=== PATIENT | female | born 1970 | race Caucasian/White ===

== ENCOUNTER 2019-12-27 23:55 | Emergency (ER) | payer SELFPAY ==
[~2019-12-27] VITALS: Ht 154.9 cm; Wt 113.6 kg
[2019-12-28 00:40] VITALS: BP 159/87
--- NOTE | 2019-12-28 01:09 | PHYS DOC ---
Adult General Chief Complaint Chief Complaint: Influenza HPI HPI Patient is a 49 year old female who presents with complaining of cough and flu. Patient states she was diagnosed with flu 3 days ago when she was seen at urgent care and had chest x-ray and treated with Zithromax but her cough is not getting better and she wants something to stop her cough. Patient denies chest pain, shortness of breath and vomiting. Patient complaining of intermittent episodes of fever and myalgia. Review of Systems Review of Systems Constitutional: Reports fever and chills Eyes: Denies change in visual acuity, redness, or eye pain [] HENT: Reports nasal congestion and sore throat Respiratory: , Cardiovascular: No additional information not addressed in HPI [] GI: Denies abdominal pain, nausea, vomiting, reports diarrhea [] : Denies dysuria or hematuria [] Musculoskeletal: Denies back pain or joint pain [] Integument: Denies rash or skin lesions [] Neurologic: Denies headache, focal weakness or sensory changes [] Endocrine: Denies polyuria or polydipsia [] All other systems were reviewed and found to be within normal limits, except as documented in this note. Physical Exam Physical Exam Constitutional: Well developed, well nourished, mild distress, non-toxic appearance. [] HENT: Normocephalic, atraumatic, bilateral external ears normal, oropharynx moist, no oral exudates, nose normal. [] Eyes: PERRLA, EOMI, conjunctiva normal, no discharge. [] Neck: Normal range of motion, no tenderness, supple, no stridor. [] Cardiovascular:Heart rate regular rhythm, no murmur [] Lungs & Thorax: Bilateral breath sounds clear to auscultation [] Abdomen: Bowel sounds normal, soft, no tenderness, no masses, no pulsatile masses. [] Skin: Warm, dry, no erythema, no rash. [] Back: No tenderness, no CVA tenderness. [] Extremities: No tenderness, no cyanosis, no clubbing, ROM intact, no edema. [] Neurologic: Alert and oriented X 3, normal motor function, normal sensory function, no focal deficits noted. [] Psychologic: Affect normal, judgement normal, mood normal. [] EKG EKG [] Radiology/Procedures Radiology/Procedures [] Course & Med Decision Making Course & Med Decision Making Evaluation of patient in ER showed 49-year-old female patient with complaining of flulike symptoms that does not getting better after sitting at urgent care and had negative x-ray and treated with Zithromax 3 days ago. Patient had stable vital signs and physical exam. Patient decided to leave AMA because of financial problem. Dragon Disclaimer Dragon Disclaimer This electronic medical record was generated, in whole or in part, using a voice recognition dictation system. Departure Departure Impression: Primary Impression: Encounter for medical screening examination Disposition: AGAINST MEDICAL ADVICE Condition: STABLE Referrals: NO PCP (PCP) Patient Instructions: Medical Screening Exam BRANDON HOLMAN MD Dec 28, 2019 01:09
== END 2019-12-28 01:10 | disposition left against medical advice (07) ==
LOC: ER 23:55
DX: R50.9 Fever, unspecified (principal); R05 Cough; R09.81 Nasal congestion; M79.10 Myalgia, unspecified site
CPT/HCPCS: 99281

== ENCOUNTER 2020-01-10 12:00 | Emergency (ER) | payer OTHER ==
[~2020-01-10] VITALS: Ht 154.9 cm; Wt 114.5 kg
[2020-01-10 12:25] VITALS: BP 151/88
--- NOTE | 2020-01-10 12:58 | PHYS DOC ---
Past Medical History Past Medical History: No Pertinent History Past Surgical History: Cholecystectomy, , Hysterectomy Smoking Status: Never Smoker Alcohol Use: None Adult General Chief Complaint Chief Complaint: COUGH HPI HPI Patient is a 49 year old female who presents with one-month cough. Patient states she been seen in urgent care 3 weeks ago, given Tessalon Perles, Zithromax, Ventolin inhaler. States she has continued to have the cough, as tried several vwyz-qlu-ksiigfq medications without relief, has tried her inhaler without relief. States no fevers, however she does complain of some fatigue. Denies chest discomfort. Denies abdominal pain. States she had been on blood pressure medications, lisinopril, however has not taken it for at least 1 year. Review of Systems Review of Systems Constitutional: Denies fever or chills [] Eyes: Denies change in visual acuity, redness, or eye pain [] HENT: Denies nasal congestion or sore throat [] Respiratory: Reports recurring cough, nonproductive. Denies shortness of breath[] Cardiovascular: No additional information not addressed in HPI [] GI: Denies abdominal pain, nausea, vomiting, bloody stools or diarrhea [] : Denies dysuria or hematuria [] Musculoskeletal: Denies back pain or joint pain [] Integument: Denies rash or skin lesions [] Neurologic: Denies headache, focal weakness or sensory changes [] Endocrine: Denies polyuria or polydipsia [] All other systems were reviewed and found to be within normal limits, except as documented in this note. Current Medications Current Medications Current Medications Medications (Trade) Dose Ordered Sig/[facility] Start Time Stop Time Status Last Admin Dose Admin Albuterol/ Ipratropium (Duoneb) 3 ml 1X ONCE 01/10/20 13:00 01/10/20 13:01 DC 01/10/20 13:08 3 ML Allergies Allergies Allergies Coded Allergies Type Severity Reaction Last Updated Verified No Known Drug Allergies 12/28/19 No Physical Exam Physical Exam Constitutional: Well developed, well nourished, no acute distress, non-toxic appearance. [] HENT: Normocephalic, atraumatic, bilateral external ears normal, oropharynx moist, no oral exudates, nose normal. [] Eyes: PERRLA, EOMI, conjunctiva normal, no discharge. [] Neck: Normal range of motion, no tenderness, supple, no stridor. [] Cardiovascular:Heart rate regular rhythm, no murmur [] Lungs & Thorax: Bilateral breath sounds diminished but clear to auscultation [] Abdomen: Bowel sounds normal, soft, no tenderness, no masses, no pulsatile masses. [] Skin: Warm, dry, no erythema, no rash. [] Back: No tenderness, no CVA tenderness. [] Extremities: No tenderness, no cyanosis, no clubbing, ROM intact, no edema. [] Neurologic: Alert and oriented X 3, normal motor function, normal sensory function, no focal deficits noted. [] Psychologic: Affect normal, judgement normal, mood normal. [] Current Patient Data Vital Signs Vital Signs Date Time Temp Pulse Resp B/P (MAP) Pulse Ox O2 Delivery O2 Flow Rate FiO2 01/10/20 13:10 96 Room Air 01/10/20 12:25 97.7 83 14 151/88 (109) 97.7 EKG EKG [] Radiology/Procedures Radiology/Procedures FINDINGS: The heart is not enlarged. Mediastinal and hilar contours are stable. Patchy right infrahilar and lung base airspace opacities likely atelectasis. No pleural effusion or pneumothorax. IMPRESSION: Patchy right infrahilar and lung base airspace opacities likely atelectasis. No lobar consolidation. Electronically signed by: Kameron Ferrer MD (01/10/2020 2:10 PM) [id number] [] Course & Med Decision Making Course & Med Decision Making Pertinent Labs and Imaging studies reviewed. (See chart for details) [] Dragon Disclaimer Dragon Disclaimer This electronic medical record was generated, in whole or in part, using a voice recognition dictation system. Departure Departure Impression: Primary Impression: Cough Disposition: HOME, SELF-CARE Condition: STABLE Referrals: NO PCP (PCP) Patient Instructions: Cough, Adult Additional Instructions: As we discussed, take the steroids the cough medication as prescribed. These will help with her cough. Continue to use your inhaler at home. May also take some wmoc-rjt-cweacyg cough medications, so that has the guaifenesin to help break up the mucus in her chest. Make sure you're drinking plenty of fluids. Fo llow-up with your primary care provider if you're not feeling any better within the next week or 2 Scripts D-Methorphan Hb/Prometh Hcl (PROMETHAZINE-DM SYRUP) 118 Ml Syrup 5 ML PO Q4HRS PRN for COUGH, #100 ML Prov: AISLINN ELIAS APRN 01/10/20 Methylprednisolone (MEDROL) 4 Mg Tab.ds.pk 1 PKG PO UD, #1 PKG Prov: AISLINN ELIAS APRN 01/10/20 AISLINN ELIAS APRN Jan 10, 2020 12:58
[2020-01-10] MEDS ORDERED: IPRATRPIUM/ALBUTEROL 0.5/2.5MG 3 ML NEBU. NEB ONE (13:00)
--- NOTE | 2020-01-10 14:12 | RAD ---
EXAM: PA and Lateral Views of the Chest DATE: 01/10/2020 12:55 PM INDICATION: SOA, cough COMPARISON: No Prior FINDINGS: The heart is not enlarged. Mediastinal and hilar contours are stable. Patchy right infrahilar and lung base airspace opacities likely atelectasis. No pleural effusion or pneumothorax. IMPRESSION: Patchy right infrahilar and lung base airspace opacities likely atelectasis. No lobar consolidation. Electronically signed by: Kameron Ferrer MD (01/10/2020 2:10 PM) [facility]
[2020-01-10] MEDS ORDERED: PROM118S9 PO (14:55)
[2020-01-10] MEDS ORDERED: METH4TAB2 PO (14:55)
== END 2020-01-10 15:00 | disposition home or self-care (01) ==
LOC: ER 12:00
DX: R05 Cough (principal); R53.83 Other fatigue
CPT/HCPCS: 71046; 94640; 99283; J7620

== ENCOUNTER 2021-01-31 19:09 | Emergency (ER) | payer OTHER ==
[~2021-01-31] VITALS: Ht 154.9 cm; Wt 115.0 kg
[~2021-01-31 19:09] MED LIST: METH4TAB2 PO; PROM118S10 PO
[2021-01-31 19:15] VITALS: BP 143/65
[2021-01-31] MEDS ORDERED: ONDANSETRON PF 4 MG/2 ML VIAL. IVP ONE (19:30)
[2021-01-31] MEDS ORDERED: IV NORMAL SALINE 1000ML BAG 1,000 ML IV ONE (20:00)
[2021-01-31 20:22] LABS: BASO # 0.1 x10^3/uL (0.0-0.2); BASO % 1 % (0-3); EOS # 0.1 x10^3/uL (0.0-0.7); EOS % 1 % (0-3); HEMATOCRIT 37.3 % (36.0-47.0); HEMOGLOBIN 11.8 g/dL (12.0-15.5); LYMPH % 27 % (24-48); MEAN CORPUSCULAR HEMOGLOBIN 24 pg (25-35); MEAN CORPUSCULAR HGB CONC 32 g/dL (31-37); MEAN CORPUSCULAR VOLUME 77 fL (79-100); MONO # 0.6 x10^3/uL (0.0-1.1); MONO % 6 % (0-9); NEUT # 7.4 x10^3/uL (1.8-7.7); NEUT % 66 % (31-73); PLATELET COUNT 284 x10^3/uL (140-400); RED BLOOD COUNT 4.85 x10^6/uL (3.50-5.40); RED CELL DISTRIBUTION WIDTH 17.4 % (11.5-14.5); WHITE BLOOD COUNT 11.2 x10^3/uL (4.0-11.0)
[2021-01-31 20:41] LABS: INFLUENZA A PATIENT NEGATIVE (NEGATIVE); INFLUENZA B PATIENT NEGATIVE (NEGATIVE)
[2021-01-31 20:47] LABS: CALCIUM 8.8 mg/dL (8.5-10.1); CREATININE 0.7 mg/dL (0.6-1.0); GFR 87.9
[2021-01-31 20:53] LABS: ALBUMIN 3.3 g/dL (3.4-5.0); ALBUMIN/GLOBULIN RATIO 0.8 (1.0-1.7); TOTAL BILIRUBIN 0.4 mg/dL (0.2-1.0); TOTAL PROTEIN 7.3 g/dL (6.4-8.2)
--- NOTE | 2021-01-31 21:26 | PHYS DOC ---
Past Medical History Past Medical History: No Pertinent History Past Surgical History: Cholecystectomy, , Hysterectomy Smoking Status: Never Smoker Alcohol Use: None Adult General Chief Complaint Chief Complaint: NAUSEA/VOMITING/DIARRHA HPI HPI Patient is a 50 year old female presenting the emergency department for new onset of flulike illness. Patient states over the last 3 days she developed new onset of generalized fatigue, body aches, fever 101 F with mild nausea without any diarrhea. Denies any chest pain or shortness of breath. Patient states that she has not been taking medication for this. Has been try to drink and rest with intermittent success. Came here because further symptoms had not improved. Review of Systems Review of Systems Constitutional: Denies fever or chills [] Eyes: Denies change in visual acuity, redness, or eye pain [] HENT: Denies nasal congestion or sore throat [] Respiratory: Denies cough or shortness of breath [] Cardiovascular: No additional information not addressed in HPI [] GI: Denies abdominal pain, nausea, vomiting, bloody stools or diarrhea [] : Denies dysuria or hematuria [] Musculoskeletal: Denies back pain or joint pain [] Integument: Denies rash or skin lesions [] Neurologic: Denies headache, focal weakness or sensory changes [] Endocrine: Denies polyuria or polydipsia [] All other systems were reviewed and found to be within normal limits, except as documented in this note. Current Medications Current Medications Current Medications Medications (Trade) Dose Ordered Sig/[facility] Start Time Stop Time Status Last Admin Dose Admin Ondansetron HCl (Zofran) 4 mg 1X ONCE 01/31/21 19:30 01/31/21 19:33 DC 01/31/21 20:33 4 MG Sodium Chloride 1,000 ml @ 1,000 mls/hr 1X ONCE 01/31/21 20:00 01/31/21 20:59 DC 01/31/21 20:33 1,000 MLS/HR Allergies Allergies Allergies Coded Allergies Type Severity Reaction Last Updated Verified No Known Drug Allergies 12/28/19 No Physical Exam Physical Exam Constitutional: Well developed, well nourished, no acute distress, non-toxic appearance. [] HENT: Normocephalic, atraumatic, bilateral external ears normal, oropharynx mois t, no oral exudates, nose normal. [] Eyes: PERRLA, EOMI, conjunctiva normal, no discharge. [] Neck: Normal range of motion, no tenderness, supple, no stridor. [] Cardiovascular:Heart rate regular rhythm, no murmur [] Lungs & Thorax: Bilateral breath sounds clear to auscultation [] Abdomen: Bowel sounds normal, soft, no tenderness, no masses, no pulsatile masses. [] Skin: Warm, dry, no erythema, no rash. [] Back: No tenderness, no CVA tenderness. [] Extremities: No tenderness, no cyanosis, no clubbing, ROM intact, no edema. [] Neurologic: Alert and oriented X 3, normal motor function, normal sensory function, no focal deficits noted. [] Psychologic: Affect normal, judgement normal, mood normal. [] Current Patient Data Lab Values Laboratory Tests Test 01/31/21 20:05 01/31/21 20:10 White Blood Count 11.2 x10^3/uL (4.0-11.0) H Red Blood Count 4.85 x10^6/uL (3.50-5.40) Hemoglobin 11.8 g/dL (12.0-15.5) L Hematocrit 37.3 % (36.0-47.0) Mean Corpuscular Volume 77 fL (79-100) L Mean Corpuscular Hemoglobin 24 pg (25-35) L Mean Corpuscular Hemoglobin Concent 32 g/dL (31-37) Red Cell Distribution Width 17.4 % (11.5-14.5) H Platelet Count 284 x10^3/uL (140-400) Neutrophils (%) (Auto) 66 % (31-73) Lymphocytes (%) (Auto) 27 % (24-48) Monocytes (%) (Auto) 6 % (0-9) Eosinophils (%) (Auto) 1 % (0-3) Basophils (%) (Auto) 1 % (0-3) Neutrophils # (Auto) 7.4 x10^3/uL (1.8-7.7) Lymphocytes # (Auto) 3.0 x10^3/uL (1.0-4.8) Monocytes # (Auto) 0.6 x10^3/uL (0.0-1.1) Eosinophils # (Auto) 0.1 x10^3/uL (0.0-0.7) Basophils # (Auto) 0.1 x10^3/uL (0.0-0.2) Sodium Level 138 mmol/L (136-145) Potassium Level 4.0 mmol/L (3.5-5.1) Chloride Level 103 mmol/L (98-107) Carbon Dioxide Level 27 mmol/L (21-32) Anion Gap 8 (6-14) Blood Urea Nitrogen 13 mg/dL (7-20) Creatinine 0.7 mg/dL (0.6-1.0) Estimated GFR (Cockcroft-Gault) 87.9 BUN/Creatinine Ratio 19 (6-20) Glucose Level 104 mg/dL (70-99) H Calcium Level 8.8 mg/dL (8.5-10.1) Total Bilirubin 0.4 mg/dL (0.2-1.0) Aspartate Amino Transferase (AST) 25 U/L (15-37) Alanine Aminotransferase (ALT) 40 U/L (14-59) Alkaline Phosphatase 93 U/L (46-116) Total Protein 7.3 g/dL (6.4-8.2) Albumin 3.3 g/dL (3.4-5.0) L Albumin/Globulin Ratio 0.8 (1.0-1.7) L Influenza Type A Antigen Negative (NEGATIVE) Influenza Type B Antigen Negative (NEGATIVE) Laboratory Tests 01/31/21 20:05 Laboratory Tests 01/31/21 20:05 EKG EKG [] Radiology/Procedures Radiology/Procedures [] Course & Med Decision Making Course & Med Decision Making Pertinent Labs and Imaging studies reviewed. (See chart for details) 50-year-old female presenting with what appears to be acute flulike illness. Because the patient has had episodes of vomiting will obtain labs to make sure there is no significant dehydration. We will treat the patient symptomatically and swab for flu Dragon Disclaimer Dragon Disclaimer This electronic medical record was generated, in whole or in part, using a voice recognition dictation system. Departure Departure Impression: Primary Impression: Viral syndrome Disposition: 01 DC HOME SELF CARE/HOMELESS Condition: GOOD Referrals: UNKNOWN PCP NAME (PCP) CALI DICKEY III DO Patient Instructions: Viral Syndrome Additional Instructions: EMERGENCY DEPARTMENT GENERAL DISCHARGE INSTRUCTIONS Thank you for coming to [facility] Emergency Department (ED) today and trusting us with you care. We trust that you had a positive experience in our Emergency Department. If you wish to speak to the department management, you may call the Director at [phone]. YOUR FOLLOW UP INSTRUCTIONS ARE FOLLOWS: 1. Do you have a private Doctor? If you do not have a private doctor, please ask for a resource list of physicians or clinics that may be able to assist you with follow up care. 2. The Emergency Physicain has interpreted your x-rays. The X-Ray specialist will also review them. If there is a change in the findings, you will be notified in 48 hours when at all possible. 3. A lab test or culture has been done, your results will be reviewed and you will be notified if you need a change in treatment. ADDITIONAL INSTRUCTIONS AND INFORMATION: 1. Your care today has been supervised by a physician who is specially trained in emergency care. Many problems require more than one evaluation for a complete diagnosis and treatment. We recommend that you schedule your follow up appointment as recommended to ensure complete treatment of you illness or injury. If you are unable to obtain follow up care and continue to have a problem, or if your condition worsens, we recommend that you return to the ED. 2. We are not able to safely determine your condition over the phone nor are we able to give sound medical advice over the phone. For these safety reasons, if you call for medical advice we will ask you to come to the ED for further evaluation. 3. If you have any questions regarding these discharge instructions please call the ED at [phone]. SAFETY INFORMATION: In the interest of safety, wellness, and injury prevention; we encourage you to wear your sealbelt, if you smoke; quite smoking, and we encourage family to use a protective helmet for bicycling and other sporting events that present an increased risk for head injury. IF YOUR SYMPTOMS WORSEN OR NEW SYMPTOMS DEVELOP, OR YOU HAVE CONCERNS ABOUT YOUR CONDITION; OR IF YOUR CONDITION WORSENS WHILE YOU ARE WAITING FOR YOUR FOLLOW UP APPOINTMENT; EITHER CONTACT YOUR PRIMARY CARE DOCTOR, THE PHYSICIAN WHOSE NAME AND NUMBER YOU WERE GIVEN, OR RETURN TO THE ED IMMEDIATELY. STEFANI ALEXANDER MD Jan 31, 2021 21:26
[2021-01-31] MEDS ORDERED: ONDA4TAB7 PO (21:29)
--- NOTE | 2021-02-02 08:58 | NUR ---
IP: Attempted to contact pt concerning COVID results. Person answering said it was a wrong number. No other number identified in EMR.
== END 2021-01-31 22:20 | disposition home or self-care (01) ==
LOC: ER 19:09
DX: B34.9 Viral infection, unspecified (principal); Z20.822 Contact with and (suspected) exposure to COVID-19
CPT/HCPCS: 36415; 80053; 85025; 87804; 96361; 96374; 99283; C9803; J2405; J7030; U0003

== ENCOUNTER 2021-07-27 16:10 | Emergency (ER) | payer OTHER ==
[~2021-07-27] VITALS: Ht 154.9 cm; Wt 111.0 kg
[~2021-07-27 16:10] MED LIST changes: +ONDA4TAB7 PO
--- NOTE | 2021-07-27 16:56 | RAD ---
EXAM: Chest, single view. HISTORY: Cough. COMPARISON: 01/10/2020 FINDINGS: A frontal view of the chest is obtained. There is no infiltrate, pleural effusion or pneumo thorax. The heart is normal in size. IMPRESSION: No acute pulmonary finding. Electronically signed by: Janki Lucero MD (07/27/2021 4:53 PM) [id number]
[2021-07-27 17:53] VITALS: BP 127/89
--- NOTE | 2021-07-27 18:29 | PHYS DOC ---
Past Medical History Past Medical History: Depression, High Cholesterol Additional Past Medical Histor: ulcers, preDM Past Surgical History: Cholecystectomy, , Hysterectomy Smoking Status: Never Smoker Alcohol Use: None General Adult EDM: Chief Complaint: MULTIPLE COMPLAINTS HPI: HPI: Patient is a 50-year-old female with history of depression, high cholesterol, who presents to the ED today complaining of cough, shortness of breath, subjective fevers, headaches, nasal congestion, nausea and diarrhea, symptoms for 1-7 days. Patient did not receive a Covid vaccine and states she does not believe in it Review of Systems: Review of Systems: Constitutional: Denies fever or chills. [] Eyes: Denies change in visual acuity. [] HENT: Denies nasal congestion or sore throat. [] Respiratory: Reports cough and shortness of breath. [] Cardiovascular: Denies chest pain or edema. [] GI: Reports nausea, diarrhea. Denies abdominal pain, reports subjective fevers vomiting, bloody stools : Denies dysuria. [] Musculoskeletal: Denies back pain or joint pain. [] Integument: Denies rash. [] Neurologic: Denies headache, focal weakness or sensory changes. [] Endocrine: Denies polyuria or polydipsia. [] Lymphatic: Denies swollen glands. [] Psychiatric: Denies depression or anxiety. [] Heart Score: C/O Chest Pain: N/A Risk Factors: Risk Factors: DM, Current or recent (<one month) smoker, HTN, HLP, family history of CAD, obesity. Risk Scores: Score 0 - 3: 2.5% MACE over next 6 weeks - Discharge Home Score 4 - 6: 20.3% MACE over next 6 weeks - Admit for Clinical Observation Score 7 - 10: 72.7% MACE over next 6 weeks - Early Invasive Strategies Allergies: Allergies: Allergies Coded Allergies Type Severity Reaction Last Updated Verified No Known Drug Allergies 12/28/19 No Physical Exam: PE: Constitutional: Well developed, well nourished, no acute distress, non-toxic appearance. [] HENT: Normocephalic, atraumatic, bilateral external ears normal, oropharynx moist, no oral exudates, nose normal. [] Eyes: PERRLA, EOMI, conjunctiva normal, no discharge. [] Neck: Normal range of motion, no tenderness, supple, no stridor. [] Cardiovascular:Heart rate regular rhythm, no murmur [] Lungs & Thorax: Bilateral breath sounds clear to auscultation [] Abdomen: Bowel sounds normal, soft, no tenderness, no masses, no pulsatile too s. [] Skin: Warm, dry, no erythema, no rash. [] Back: No tenderness, no CVA tenderness. [] Extremities: No tenderness, no cyanosis, no clubbing, ROM intact, no edema. [] Neurologic: Alert and oriented X 3, normal motor function, normal sensory function, no focal deficits noted. [] Psychologic: Affect normal, judgement normal, mood normal. [] Current Patient Data: Labs: Laboratory Tests Test 07/27/21 16:28 SARS-CoV-2 Antigen (Rapid) Negative (NEGATIVE) Vital Signs: Vital Signs Date Time Temp Pulse Resp B/P (MAP) Pulse Ox O2 Delivery O2 Flow Rate FiO2 07/27/21 16:24 99.0 92 20 163/87 (91) 96 Room Air 99.0 EKG: EKG: [] Radiology/Procedures: Radiology/Procedures: [] Course & Med Decision Making: Course & Med Decision Making Pertinent Labs and Imaging studies reviewed. (See chart for details) This is a 50-year-old female patient presented to the ED today with complaints of cough, shortness of breath, subjective fevers, headaches, nasal congestion, nausea and diarrhea, symptoms for 1-7 days Chest x-ray interpreted by radiologist is negative for any acute findings, negative rapid Covid test. PCR Covid test pending. Discharge to home. Instructed to quarantine herself until the PCR Covid test is back. Provided supportive care measures. Dragon Disclaimer: Jonathan Disclaimer: This electronic medical record was generated, in whole or in part, using a voice recognition dictation system. Departure Departure Impression: Primary Impression: Cough Additional Impressions: Headache Qualified Codes: R51.9 - Headache, unspecified Diarrhea Qualified Codes: R19.7 - Diarrhea, unspecified Person under investigation for COVID-19 Shortness of breath Fever Qualified Codes: R50.9 - Fever, unspecified Disposition: HOME / SELF CARE / HOMELESS Condition: STABLE Referrals: NO PCP (PCP) follow up in one week Patient Instructions: Cough, Adult, Diarrhea, General Headache Without Cause Additional Instructions: You were evaluated in the emergency room, your chest x-ray is negative for any acute findings. Your rapid Covid test is negative. Your PCR Covid test is pending. Please quarantine yourself until results are back. Push fluids, rest, maintain good hand hygiene. Take Tylenol or Motrin for pain or fever. Follow- up with your doctor in 1 to 2 weeks. Come back to the ED at any point symptoms worsen ROCK MONTES APRN Jul 27, 2021 18:29
--- NOTE | 2021-07-28 11:52 | NUR ---
IP: Attempted to contact pt concerning covid results. Phone number provided is not in service.
== END 2021-07-27 18:37 | disposition home or self-care (01) ==
LOC: ER 16:10
DX: R05 Cough (principal); Z20.822 Contact with and (suspected) exposure to COVID-19; R06.02 Shortness of breath; R51.9 Headache, unspecified; R50.9 Fever, unspecified; R19.7 Diarrhea, unspecified; E78.00 Pure hypercholesterolemia, unspecified
CPT/HCPCS: 71045; 87426; 99284; U0003; U0005